=== PATIENT | male | born 1945 | race Caucasian/White ===

== ENCOUNTER 2019-02-06 15:24 | Inpatient (IN) | payer MEDICARE, MEDICAID ==
[~2019-02-06] VITALS: Ht 190.5 cm; Wt 84.2 kg
[2019-02-06] MEDS ORDERED: SODIUM CHLORIDE 0.9% 1,000 ML IV ONE (15:42)
[2019-02-06] MEDS ORDERED: ACETAMINOPHEN WITH CODEINE 300/30MG TABLET PO STA (15:42)
[2019-02-06] MEDS ORDERED: CHLORDIAZEPOXIDE 25MG CAPSULE PO ONE (16:00)
[2019-02-06 16:53] LABS: BASOPHILS % 0.2 % (0.0-2.0); EOSINOPHILS % 0.3 % (0.0-5.0); HEMOGLOBIN. 16.1 g/dL (14.0-18.0); LYMPHOCYTES % 17.1 % (20.0-50.0); MEAN CORPUSCULAR VOLUME 95.5 fL (80.0-94.0); MEAN PLATELET VOLUME 7.6 fl (7.4-10.4); MONOCYTES % 5.5 % (2.0-8.0); NEUTROPHILS % 76.9 % (40.0-76.0); PLATELET 328 x1000/uL (130-400); RED BLOOD CELL COUNT 5.02 mill/uL (4.7-6.1); RED CELL DISTRIBUTION WIDTH 14.3 % (11.6-14.6)
[2019-02-06] MEDS ORDERED: MORPHINE SULFATE 4 MG/ML CPJ (NOT FOR IM USE) IV STA (18:02)
[2019-02-06] MEDS ORDERED: ONDANSETRON HCL 4MG/2ML INJ IV STA (18:02)
[2019-02-06] MEDS ORDERED: LORAZEPAM 2MG/ML CPJ IV ONE (18:30)
[2019-02-06] MEDS ORDERED: MAGNESIUM/ALUMINUM HYDROXIDE/SIMETHICONE 30ML UDC PO PRN (19:00)
[2019-02-06] MEDS ORDERED: IPRATROPIUM/ALBUTEROL 0.5-3(2.5)MG/3ML NEB HHN PRN (19:00)
[2019-02-06] MEDS ORDERED: GUAIFENESIN 200MG/10ML SUGAR FREE UDC PO PRN (19:00)
[2019-02-06] MEDS ORDERED: ONDANSETRON HCL 4MG/2ML INJ IV PRN ×2 (19:00→20:15)
[2019-02-06] MEDS ORDERED: DOCUSATE SODIUM 100MG CAPSULE PO PRN (19:00)
[2019-02-06] MEDS ORDERED: LORAZEPAM 2MG/ML CPJ IV PRN (19:00)
[2019-02-06] MEDS ORDERED: NITROGLYCERIN 0.4MG TABLET SL SL PRN (19:00)
[2019-02-06] MEDS ORDERED: MORPHINE SULFATE 2 MG/ML CPJ (NOT FOR IM USE) IV PRN (19:14)
[2019-02-06 19:36] LABS: CHLORIDE 99 mEq/L (98-107)
[2019-02-06] MEDS ORDERED: LEVOFLOXACIN 500MG PREMIX 100 ML IV ONE (19:36)
[2019-02-06] MEDS ORDERED: BUPIVACAINE HCL 0.5% (5MG/ML) 50ML ONE (19:36)
[2019-02-06] MEDS ORDERED: METRONIDAZOLE 500 MG PREMIX 100 ML IV ONE (19:36)
[2019-02-06 19:37] LABS: INR 1.2; PROTHROMBIN TIME 12.1 sec (9.6-11.0)
[2019-02-06] MEDS ORDERED: FENTANYL CITRATE/PF 50MCG/ML 2ML VIAL ONE (19:37)
[2019-02-06] MEDS ORDERED: MIDAZOLAM HCL 2 MG/2 ML VIAL ONE ×2 (19:37→20:43)
[2019-02-06] MEDS ORDERED: SUCCINYLCHOLINE CHLORIDE 200MG/10ML IV ONE (19:38)
[2019-02-06] MEDS ORDERED: ROCURONIUM BROMIDE 10MG/ML VIAL 5ML IV ONE (19:38)
[2019-02-06] MEDS ORDERED: EPHEDRINE SULFATE 50MG/ML VIAL ONE (19:38)
[2019-02-06] MEDS ORDERED: PROPOFOL 200MG/20ML VIAL IV ONE (19:38)
[2019-02-06] MEDS ORDERED: LIDOCAINE HCL/PF 1% 10 MG/ML 5ML VIAL ONE ×2 (19:38→19:42)
[2019-02-06 19:39] LABS: ETHANOL BLOOD < 10 mg/dL
[2019-02-06] MEDS ORDERED: SODIUM CHLORIDE 0.9% 10ML VIAL ONE (19:48)
[2019-02-06] MEDS ORDERED: PHENYLEPHRINE HCL 10 MG/ML 1ML (IV VIAL) IV ONE (19:49)
[2019-02-06] MEDS ORDERED: ACETAMINOPHEN 650MG SUPP PR PRN ×2 (20:15→22:00)
[2019-02-06] MEDS ORDERED: HYDROCORTISONE SOD SUCCINATE 100 MG/2 ML VIAL ONE (20:40)
[2019-02-06] MEDS ORDERED: HYDRALAZINE 20MG/ML VIAL IV PRN (22:00)
[2019-02-06] MEDS ORDERED: GLYCOPYRROLATE 0.2 MG/ML 2ML VIAL ONE (22:07)
[2019-02-06] MEDS ORDERED: NEOSTIGMINE METHYLSULFATE 1MG/ML 10 ML VIAL ONE (22:08)
[2019-02-06] MEDS ORDERED: FLUMAZENIL 0.1 MG/ML 5ML VIAL IV ONE (22:47)
[2019-02-06 23:08] VITALS: BP 143/101
[2019-02-06 23:30] VITALS: BP 148/109
[2019-02-06] MEDS: MORPHINE SULFATE 2 MG/ML CPJ (NOT FOR IM USE) IV PRN (23:46)
[2019-02-06] MEDS: DEXT 5%/LACTATED RINGERS 1,000 ML IV SCH (23:49)
[2019-02-06 23:59] LABS: HEMATOCRIT 44.7 % (42.0-52.0); HEMOGLOBIN 14.7 g/dL (14.0-18.0); MEAN CORPUSCULAR HEMOGLOBIN 31.8 pg (28.0-32.0); MEAN CORPUSCULAR VOLUME 96.5 fL (80.0-94.0); PLATELET 208 x1000/uL (130-400); RED BLOOD CELL COUNT 4.64 mill/uL (4.7-6.1); RED CELL DISTRIBUTION WIDTH 13.7 % (11.6-14.6)
[2019-02-07] VITALS (48 sets, daily range): BP systolic 113–162; BP diastolic 55–101
[2019-02-07] MEDS ORDERED: DEXT 5%/0.45% NACL KCL 20MEQ/L 1,000 ML IV SCH
[2019-02-07 00:08] LABS: CHLORIDE 101 mEq/L (98-107)
[2019-02-07] MEDS: PANTOPRAZOLE SODIUM 40 MG/VIAL IV SCH ×2 (01:16→08:33)
[2019-02-07] MEDS: FAMOTIDINE 20MG/2ML VIAL IV SCH ×3 (01:16→21:58)
[2019-02-07] MEDS: METRONIDAZOLE 500 MG PREMIX 100 ML IV SCH ×2 (01:17→08:35)
[2019-02-07] MEDS: LEVOFLOXACIN 500MG PREMIX 100 ML IV SCH (02:52)
[2019-02-07] MEDS: PIPERACILLIN/TAZOBACTAM 3.375 G in DEXT 5% WATER 100 ML IV SCH ×3 (02:52→22:59)
[2019-02-07] MEDS: MORPHINE SULFATE 2 MG/ML CPJ (NOT FOR IM USE) IV PRN ×2 (02:55→05:58)
[2019-02-07 06:15] LABS: HEMATOCRIT 39.5 % (42.0-52.0); HEMOGLOBIN 13.4 g/dL (14.0-18.0); MEAN CORPUSCULAR HEMOGLOBIN 31.9 pg (28.0-32.0); MEAN CORPUSCULAR VOLUME 94.5 fL (80.0-94.0); PLATELET 245 x1000/uL (130-400); RED BLOOD CELL COUNT 4.18 mill/uL (4.7-6.1); RED CELL DISTRIBUTION WIDTH 13.8 % (11.6-14.6)
[2019-02-07 06:23] LABS: CHLORIDE 100 mEq/L (98-107)
[2019-02-07] MEDS ORDERED: MORPHINE SULFATE 2 MG/ML CPJ (NOT FOR IM USE) IV PRN (08:30)
[2019-02-07] MEDS: DEXT 5%/LACTATED RINGERS 1,000 ML IV SCH (09:02)
[2019-02-07] MEDS ORDERED: MORPHINE SULFATE 4 MG/ML CPJ (NOT FOR IM USE) IV PRN ×2 (10:15→13:15)
[2019-02-07] MEDS: DEXT 5%/0.9% NACL KCL 20MEQ/L 1,000 ML IV SCH ×2 (10:43→21:58)
[2019-02-07] MEDS: HYDROMORPHONE HCL/PF 2MG/ML CPJ IV PRN ×3 (15:52→22:11)
[2019-02-07] MEDS ORDERED: METRONIDAZOLE 500 MG PREMIX 100 ML IV SCH (20:00)
[2019-02-08] VITALS (47 sets, daily range): BP systolic 84–172; BP diastolic 42–100
[2019-02-08] MEDS: HYDROMORPHONE HCL/PF 2MG/ML CPJ IV PRN ×6 (00:46→22:51)
[2019-02-08] MEDS: LEVOFLOXACIN 500MG PREMIX 100 ML IV SCH (02:18)
[2019-02-08] MEDS: PIPERACILLIN/TAZOBACTAM 3.375 G in DEXT 5% WATER 100 ML IV SCH ×4 (03:04→22:50)
[2019-02-08 05:47] LABS: BASOPHILS % 0.1 % (0.0-2.0); EOSINOPHILS % 0.1 % (0.0-5.0); HEMATOCRIT. 41.8 % (42.0-52.0); HEMOGLOBIN. 13.7 g/dL (14.0-18.0); LYMPHOCYTES % 8.6 % (20.0-50.0); MEAN CORPUSCULAR HEMOGLOBIN 31.5 pg (28.0-32.0); MEAN CORPUSCULAR VOLUME 96.4 fL (80.0-94.0); MEAN PLATELET VOLUME 7.7 fl (7.4-10.4); MONOCYTES % 5.6 % (2.0-8.0); NEUTROPHILS % 85.6 % (40.0-76.0); PLATELET 237 x1000/uL (130-400); RED BLOOD CELL COUNT 4.34 mill/uL (4.7-6.1); RED CELL DISTRIBUTION WIDTH 13.8 % (11.6-14.6)
[2019-02-08 05:58] LABS: CHLORIDE 104 mEq/L (98-107)
[2019-02-08] MEDS: FAMOTIDINE 20MG/2ML VIAL IV SCH ×2 (08:47→20:36)
[2019-02-08] MEDS: PANTOPRAZOLE SODIUM 40 MG/VIAL IV SCH (08:47)
[2019-02-08] MEDS: DEXT 5%/0.9% NACL KCL 20MEQ/L 1,000 ML IV SCH ×2 (08:47→18:02)
[2019-02-08] MEDS: NICOTINE 14MG PATCH TD SCH (11:32)
[2019-02-08] MEDS: IPRATROPIUM/ALBUTEROL 0.5-3(2.5)MG/3ML NEB HHN SCH ×2 (12:46→20:29)
[2019-02-09] VITALS (39 sets, daily range): BP systolic 102–164; BP diastolic 46–100
[2019-02-09] MEDS: HYDROMORPHONE HCL/PF 2MG/ML CPJ IV PRN ×8 (01:07→23:34)
[2019-02-09] MEDS: LEVOFLOXACIN 500MG PREMIX 100 ML IV SCH (02:00)
[2019-02-09] MEDS: IPRATROPIUM/ALBUTEROL 0.5-3(2.5)MG/3ML NEB HHN SCH ×4 (02:28→20:10)
[2019-02-09] MEDS: DEXT 5%/0.9% NACL KCL 20MEQ/L 1,000 ML IV SCH ×3 (03:30→23:17)
[2019-02-09] MEDS: PIPERACILLIN/TAZOBACTAM 3.375 G in DEXT 5% WATER 100 ML IV SCH ×2 (03:49→09:09)
[2019-02-09 05:43] LABS: CHLORIDE 105 mEq/L (98-107)
[2019-02-09 05:47] LABS: HEMATOCRIT. 35.7 % (42.0-52.0); HEMOGLOBIN. 11.7 g/dL (14.0-18.0); MEAN CORPUSCULAR HEMOGLOBIN 31.3 pg (28.0-32.0); MEAN CORPUSCULAR VOLUME 95.6 fL (80.0-94.0); PLATELET 201 x1000/uL (130-400); RED BLOOD CELL COUNT 3.73 mill/uL (4.7-6.1)
[2019-02-09] MEDS: PANTOPRAZOLE SODIUM 40 MG/VIAL IV SCH (09:00)
[2019-02-09] MEDS: FAMOTIDINE 20MG/2ML VIAL IV SCH ×2 (09:00→20:38)
[2019-02-09] MEDS: NICOTINE 14MG PATCH TD SCH (09:01)
[2019-02-09 13:15] LABS: PLATELET ESTIMATE NORMAL
[2019-02-09] MEDS ORDERED: AMLO10TA80 PO (16:38)
[2019-02-09] MEDS ORDERED: ASPI-1393 MT (16:38)
[2019-02-10] VITALS (19 sets, daily range): BP systolic 122–153; BP diastolic 65–94
[2019-02-10] MEDS: IPRATROPIUM/ALBUTEROL 0.5-3(2.5)MG/3ML NEB HHN SCH ×4 (01:09→21:31)
[2019-02-10] MEDS: LEVOFLOXACIN 500MG PREMIX 100 ML IV SCH (02:15)
[2019-02-10] MEDS: HYDROMORPHONE HCL/PF 2MG/ML CPJ IV PRN ×5 (04:58→17:15)
[2019-02-10] MEDS: NICOTINE 14MG PATCH TD SCH (07:52)
[2019-02-10] MEDS: FAMOTIDINE 20MG/2ML VIAL IV SCH ×2 (07:52→21:24)
[2019-02-10] MEDS: DEXT 5%/0.9% NACL KCL 20MEQ/L 1,000 ML IV SCH ×2 (07:52→18:57)
[2019-02-11 00:38] VITALS: BP 135/84
[2019-02-11] MEDS: HYDROMORPHONE HCL/PF 2MG/ML CPJ IV PRN ×9 (00:40→22:21)
[2019-02-11] MEDS: LEVOFLOXACIN 500MG PREMIX 100 ML IV SCH (02:15)
[2019-02-11] MEDS: IPRATROPIUM/ALBUTEROL 0.5-3(2.5)MG/3ML NEB HHN SCH ×4 (03:45→20:57)
[2019-02-11 04:00] VITALS: BP 118/84
[2019-02-11] MEDS: DEXT 5%/0.9% NACL KCL 20MEQ/L 1,000 ML IV SCH ×2 (05:33→16:40)
[2019-02-11 08:14] VITALS: BP 142/92
[2019-02-11] MEDS: FAMOTIDINE 20MG/2ML VIAL IV SCH ×2 (08:57→22:21)
[2019-02-11] MEDS: NICOTINE 14MG PATCH TD SCH (08:58)
[2019-02-11 11:56] VITALS: BP 156/96
[2019-02-11 15:54] VITALS: BP 137/91
[2019-02-11 20:00] VITALS: BP 146/97
[2019-02-12] VITALS: BP 126/83
[2019-02-12] MEDS: IPRATROPIUM/ALBUTEROL 0.5-3(2.5)MG/3ML NEB HHN SCH ×4 (00:48→21:24)
[2019-02-12] MEDS: HYDROMORPHONE HCL/PF 2MG/ML CPJ IV PRN ×6 (00:50→13:22)
[2019-02-12] MEDS: LEVOFLOXACIN 500MG PREMIX 100 ML IV SCH (02:26)
[2019-02-12] MEDS: DEXT 5%/0.9% NACL KCL 20MEQ/L 1,000 ML IV SCH ×3 (02:27→17:00)
[2019-02-12 04:00] VITALS: BP 136/88
[2019-02-12 07:15] LABS: BASOPHILS % 0.3 % (0.0-2.0); EOSINOPHILS % 1.9 % (0.0-5.0); HEMATOCRIT. 38.7 % (42.0-52.0); HEMOGLOBIN. 12.9 g/dL (14.0-18.0); LYMPHOCYTES % 8.2 % (20.0-50.0); MEAN CORPUSCULAR HEMOGLOBIN 31.3 pg (28.0-32.0); MEAN CORPUSCULAR VOLUME 93.9 fL (80.0-94.0); MEAN PLATELET VOLUME 7.6 fl (7.4-10.4); MONOCYTES % 10.5 % (2.0-8.0); NEUTROPHILS % 79.1 % (40.0-76.0); PLATELET 221 x1000/uL (130-400); RED BLOOD CELL COUNT 4.12 mill/uL (4.7-6.1); RED CELL DISTRIBUTION WIDTH 14.3 % (11.6-14.6)
[2019-02-12 08:00] VITALS: BP 146/91
[2019-02-12 08:18] LABS: CHLORIDE 105 mEq/L (98-107)
[2019-02-12] MEDS: FAMOTIDINE 20MG/2ML VIAL IV SCH ×2 (08:46→20:35)
[2019-02-12] MEDS: NICOTINE 14MG PATCH TD SCH (08:47)
[2019-02-12] MEDS: OXYCODONE HCL/ACETAMINOPHEN 5/325MG TABLET PO PRN ×3 (11:49→23:58)
[2019-02-12 12:00] VITALS: BP 149/92
[2019-02-12 16:00] VITALS: BP 128/50
[2019-02-12 20:00] VITALS: BP 133/87
[2019-02-12] MEDS: ACETAMINOPHEN 325MG TABLET PO PRN (20:35)
[2019-02-13] VITALS: BP 149/90
[2019-02-13] MEDS: LEVOFLOXACIN 500MG PREMIX 100 ML IV SCH (01:33)
[2019-02-13] MEDS: ACETAMINOPHEN 325MG TABLET PO PRN (01:41)
[2019-02-13] MEDS: IPRATROPIUM/ALBUTEROL 0.5-3(2.5)MG/3ML NEB HHN SCH ×4 (01:57→20:55)
[2019-02-13 04:15] VITALS: BP 150/86
[2019-02-13] MEDS: KETOROLAC 10MG TABLET PO PRN (04:16)
[2019-02-13] MEDS: DEXT 5%/0.9% NACL KCL 20MEQ/L 1,000 ML IV SCH ×2 (05:41→19:07)
[2019-02-13] MEDS: OXYCODONE HCL/ACETAMINOPHEN 5/325MG TABLET PO PRN ×2 (06:02→17:53)
[2019-02-13 08:00] VITALS: BP 154/98
[2019-02-13] MEDS ORDERED: HYDROMORPHONE HCL/PF 2MG/ML CPJ IV PRN (08:45)
[2019-02-13] MEDS: FAMOTIDINE 20MG/2ML VIAL IV SCH ×2 (08:58→20:12)
[2019-02-13] MEDS: NICOTINE 14MG PATCH TD SCH (08:58)
[2019-02-13 12:00] VITALS: BP 157/99
[2019-02-13] MEDS: HYDROMORPHONE HCL/PF 2MG/ML CPJ IV PRN ×4 (12:23→23:22)
[2019-02-13 16:00] VITALS: BP 144/94
[2019-02-13 20:28] VITALS: BP 152/98
[2019-02-14] VITALS: BP 145/85
[2019-02-14] MEDS: OXYCODONE HCL/ACETAMINOPHEN 5/325MG TABLET PO PRN ×2 (01:09→12:13)
[2019-02-14] MEDS: IPRATROPIUM/ALBUTEROL 0.5-3(2.5)MG/3ML NEB HHN SCH ×4 (01:18→20:27)
[2019-02-14] MEDS: LEVOFLOXACIN 500MG PREMIX 100 ML IV SCH (01:51)
[2019-02-14] MEDS: HYDROMORPHONE HCL/PF 2MG/ML CPJ IV PRN ×6 (03:27→22:12)
[2019-02-14 04:00] VITALS: BP 127/83
[2019-02-14] MEDS: KETOROLAC 10MG TABLET PO PRN (05:11)
[2019-02-14 08:00] VITALS: BP 134/96
[2019-02-14] MEDS: FAMOTIDINE 20MG/2ML VIAL IV SCH ×2 (09:53→22:11)
[2019-02-14] MEDS: NICOTINE 14MG PATCH TD SCH (09:53)
[2019-02-14] MEDS ORDERED: MAGNESIUM 1 G PREMIX 100 ML IV SCH (12:00)
[2019-02-14] MEDS ORDERED: KCL 20MEQ/100ML PREMIX 100 ML IV SCH (12:00)
[2019-02-14 12:09] VITALS: BP 147/99
[2019-02-14 13:24] LABS: HEMATOCRIT. 41.9 % (42.0-52.0); HEMOGLOBIN. 13.6 g/dL (14.0-18.0); MEAN CORPUSCULAR HEMOGLOBIN 30.8 pg (28.0-32.0); MEAN CORPUSCULAR VOLUME 94.6 fL (80.0-94.0); MEAN PLATELET VOLUME 7.5 fl (7.4-10.4); PLATELET 326 x1000/uL (130-400); RED BLOOD CELL COUNT 4.43 mill/uL (4.7-6.1); RED CELL DISTRIBUTION WIDTH 14.6 % (11.6-14.6)
[2019-02-14 13:28] LABS: CHLORIDE 105 mEq/L (98-107)
[2019-02-14 14:27] LABS: PLATELET ESTIMATE NORMAL
[2019-02-14] MEDS: DEXT 5%/0.9% NACL KCL 20MEQ/L 1,000 ML IV SCH (15:19)
[2019-02-14 16:36] VITALS: BP 119/86
[2019-02-14 20:30] VITALS: BP 163/99
[2019-02-14] MEDS: CLONIDINE 0.1MG TABLET PO PRN (22:12)
[2019-02-15] VITALS (7 sets, daily range): BP systolic 139–163; BP diastolic 80–95
[2019-02-15] MEDS: DEXT 5%/0.9% NACL KCL 20MEQ/L 1,000 ML IV SCH ×3 (00:42→17:49)
[2019-02-15] MEDS: HYDROMORPHONE HCL/PF 2MG/ML CPJ IV PRN ×4 (01:17→20:33)
[2019-02-15] MEDS: IPRATROPIUM/ALBUTEROL 0.5-3(2.5)MG/3ML NEB HHN SCH ×4 (02:02→20:59)
[2019-02-15] MEDS: LEVOFLOXACIN 500MG PREMIX 100 ML IV SCH ×2 (03:50→17:50)
[2019-02-15 07:51] LABS: BASOPHILS % 0.3 % (0.0-2.0); EOSINOPHILS % 0.9 % (0.0-5.0); HEMATOCRIT. 36.7 % (42.0-52.0); LYMPHOCYTES % 8.3 % (20.0-50.0); MEAN CORPUSCULAR HEMOGLOBIN 30.6 pg (28.0-32.0); MEAN CORPUSCULAR VOLUME 93.5 fL (80.0-94.0); MEAN PLATELET VOLUME 8.1 fl (7.4-10.4); MONOCYTES % 5.9 % (2.0-8.0); NEUTROPHILS % 84.6 % (40.0-76.0); PLATELET 308 x1000/uL (130-400); RED BLOOD CELL COUNT 3.92 mill/uL (4.7-6.1); RED CELL DISTRIBUTION WIDTH 14.5 % (11.6-14.6)
[2019-02-15 08:15] LABS: CHLORIDE 104 mEq/L (98-107)
[2019-02-15] MEDS: FAMOTIDINE 20MG/2ML VIAL IV SCH ×2 (08:51→23:13)
[2019-02-15] MEDS: NICOTINE 14MG PATCH TD SCH (09:20)
[2019-02-15] MEDS: OXYCODONE HCL/ACETAMINOPHEN 5/325MG TABLET PO PRN ×2 (12:01→18:32)
[2019-02-15] MEDS: KETOROLAC 10MG TABLET PO PRN (15:20)
[2019-02-16] VITALS: BP 138/88
[2019-02-16] MEDS: HYDROMORPHONE HCL/PF 2MG/ML CPJ IV PRN ×6 (00:53→20:48)
[2019-02-16] MEDS: IPRATROPIUM/ALBUTEROL 0.5-3(2.5)MG/3ML NEB HHN SCH ×4 (02:37→20:44)
[2019-02-16 04:00] VITALS: BP 143/94
[2019-02-16] MEDS: DEXT 5%/0.9% NACL KCL 20MEQ/L 1,000 ML IV SCH ×2 (04:45→16:10)
[2019-02-16] MEDS: FAMOTIDINE 20MG/2ML VIAL IV SCH ×2 (09:25→20:48)
[2019-02-16] MEDS: NICOTINE 14MG PATCH TD SCH (09:25)
[2019-02-16 16:00] VITALS: BP 147/71
[2019-02-16 20:15] VITALS: BP 153/77
[2019-02-17 00:30] VITALS: BP 135/80
[2019-02-17] MEDS: HYDROMORPHONE HCL/PF 2MG/ML CPJ IV PRN ×3 (02:07→08:57)
[2019-02-17] MEDS: DEXT 5%/0.9% NACL KCL 20MEQ/L 1,000 ML IV SCH (02:07)
[2019-02-17] MEDS: LEVOFLOXACIN 500MG PREMIX 100 ML IV SCH (02:08)
[2019-02-17] MEDS: IPRATROPIUM/ALBUTEROL 0.5-3(2.5)MG/3ML NEB HHN SCH ×4 (02:30→21:01)
[2019-02-17 04:00] VITALS: BP 147/94
[2019-02-17 08:00] VITALS: BP 151/84
[2019-02-17] MEDS: FAMOTIDINE 20MG/2ML VIAL IV SCH ×2 (08:57→20:31)
[2019-02-17] MEDS: NICOTINE 14MG PATCH TD SCH (08:58)
[2019-02-17 12:00] VITALS: BP 153/111
[2019-02-17] MEDS: OXYCODONE HCL 10MG TABLET SR 12HR PO SCH ×2 (12:56→20:31)
[2019-02-17] MEDS: ACETAMINOPHEN 325MG TABLET PO PRN ×2 (13:53→21:49)
[2019-02-17 16:00] VITALS: BP 144/82
[2019-02-17 20:23] VITALS: BP 173/87
[2019-02-17] MEDS: CLONIDINE 0.1MG TABLET PO PRN (20:32)
[2019-02-18 00:02] VITALS: BP 138/84
[2019-02-18] MEDS: IPRATROPIUM/ALBUTEROL 0.5-3(2.5)MG/3ML NEB HHN SCH ×4 (00:55→21:36)
[2019-02-18] MEDS: ACETAMINOPHEN 325MG TABLET PO PRN (04:06)
[2019-02-18 04:29] VITALS: BP 131/77
[2019-02-18 08:00] VITALS: BP 153/86
[2019-02-18] MEDS: OXYCODONE HCL 10MG TABLET SR 12HR PO SCH ×2 (08:10→20:42)
[2019-02-18] MEDS: NICOTINE 14MG PATCH TD SCH (08:11)
[2019-02-18] MEDS: FAMOTIDINE 20MG/2ML VIAL IV SCH ×2 (08:11→20:42)
[2019-02-18 12:00] VITALS: BP 135/88
[2019-02-18] MEDS: KETOROLAC 30MG/ML VIAL IV PRN ×2 (12:13→18:30)
[2019-02-18 16:00] VITALS: BP 153/84
[2019-02-18 20:00] VITALS: BP 145/82
[2019-02-19] VITALS: BP 140/83
[2019-02-19] MEDS: KETOROLAC 30MG/ML VIAL IV PRN (00:22)
[2019-02-19] MEDS: IPRATROPIUM/ALBUTEROL 0.5-3(2.5)MG/3ML NEB HHN SCH ×2 (00:44→10:04)
[2019-02-19 04:00] VITALS: BP 132/84
[2019-02-19] MEDS: ACETAMINOPHEN 325MG TABLET PO PRN (04:33)
[2019-02-19 08:00] VITALS: BP 141/82
[2019-02-19] MEDS: FAMOTIDINE 20MG/2ML VIAL IV SCH (08:45)
[2019-02-19] MEDS: NICOTINE 14MG PATCH TD SCH (08:45)
[2019-02-19] MEDS: OXYCODONE HCL 10MG TABLET SR 12HR PO SCH (08:45)
[2019-02-19 10:45] VITALS: BP 141/82
== END 2019-02-19 12:51 | DRG 853 ==
LOC: ER 15:24 → CVICU 18:31 → EDBEDREQ 18:36 → SUPCPDRO 18:52 → ENRESERV 19:37 → CANRESERV 19:37 → EDBEDREQSVC 20:57 → ENRESERV 20:57 → 6WST 02-10 17:52
PROVIDERS: ADMIT Internal Medicine; ATTEND Internal Medicine
PROC: 0DTG0ZZ Resection of Left Large Intestine, Open Approach (ICD-10-PCS; principal; 2019-02-06)
PROC: 0DBU0ZZ Excision of Omentum, Open Approach (ICD-10-PCS; 2019-02-06)
PROC: 0DBA0ZZ Excision of Jejunum, Open Approach (ICD-10-PCS; 2019-02-06)
PROC: 0D1L0Z4 Bypass Transverse Colon to Cutaneous, Open Approach (ICD-10-PCS; 2019-02-06)
PROC: 0WBF0ZZ Excision of Abdominal Wall, Open Approach (ICD-10-PCS; 2019-02-06)
PROC: 02HV33Z Insertion of Infusion Device into Superior Vena Cava, Percutaneous Approach (ICD-10-PCS; 2019-02-09)
PROC: B548ZZA Ultrasonography of Superior Vena Cava, Guidance (ICD-10-PCS; 2019-02-09)
DX: A41.9 Sepsis, unspecified organism (principal); K63.1 Perforation of intestine (nontraumatic); J69.0 Pneumonitis due to inhalation of food and vomit; J96.00 Acute respiratory failure, unspecified whether with hypoxia or hypercapnia; K65.9 Peritonitis, unspecified; C78.6 Secondary malignant neoplasm of retroperitoneum and peritoneum; C18.9 Malignant neoplasm of colon, unspecified; C78.7 Secondary malignant neoplasm of liver and intrahepatic bile duct; E87.1 Hypo-osmolality and hyponatremia; C18.6 Malignant neoplasm of descending colon; E44.0 Moderate protein-calorie malnutrition; K56.7 Ileus, unspecified; F12.90 Cannabis use, unspecified, uncomplicated; F17.210 Nicotine dependence, cigarettes, uncomplicated; I10 Essential (primary) hypertension; J44.9 Chronic obstructive pulmonary disease, unspecified; Z71.6 Tobacco abuse counseling; G47.30 Sleep apnea, unspecified; Z68.23 Body mass index [BMI] 23.0-23.9, adult
CPT/HCPCS: 36415; 71045; 74018; 74176; 76937; 80048; 80320; 82378; 83036; 83605; 83735; 84145; 84484; 85027; 86850; 86900; 87070; 87075; 87077; 87186; 88305; 88307; 88309; 93005; 93970; 94640; 97110; 97116; 97162; 97166; 97530; 97535; 99291; C1725; C1893; C9113; J0330; J1170; J1720; J1885; J1956; J2060; J2250; J2270; J2370; J2405; J2543; J2704; J2710; J3010; J3475; J3480; J3490; J7030; J7060; J7620; G0480